=== PATIENT | male | born 2000 | race Caucasian/White ===

== ENCOUNTER 2025-02-02 18:25 | Emergency (ER) | payer SELFPAY ==
--- NOTE | ~2025-02-02 | XR_ITS ---
CLINICAL HISTORY: sob 2 view chest x-ray Comparison: None Findings: There is increased opacity in the retrocardiac left lower lobe. No effusion or pneumothorax. Normal size heart. No acute fracture. IMPRESSION: Left lower lobe medial opacity which may be atelectasis or infection. This document has been electronically signed by: Nato Zeng MD on 02/02/2025 23:47:09
[2025-02-02 18:45] VITALS: BP 130/95; PULSE 104; RESP 18; TEMP 36.7; O2SAT 95; BMI 26.0
--- NOTE | 2025-02-02 18:47 | ED.GENADULT ---
HPI - General Adult General Chief complaint: Asthma Stated complaint: difficulty breathing, vomiting Time Seen by Provider: 02/02/25 21:22 Source: patient Mode of arrival: ambulatory Limitations: no limitations History of Present Illness ED Provider: tip fishman np HPI narrative: Patient is a 24-year-old male who presents emergency department for evaluation endorsing asthma exacerbation he has been experiencing cough, dyspnea on exertion, and post-tussive vomiting since yesterday evening. States he does not have assurance at this time therefore has not had his inhaler or nebulizers. He was able to use his sister's nebulizer machine last night which did help his symptoms for a few hours. He denies any known sick contacts. Denies any notable fever but has experienced some chills. Denies headache, dizziness, lightheadedness, history of VTE/malignancy, abdominal pain, nausea, constipation, diarrhea, genitourinary symptoms, numbness or tingling of the extremities. Denies recent lower extremity redness pain swelling. Denies recreational drug or alcohol usage Related Data Previous Rx's ?Medication ?Instructions ?Recorded albuterol sulfate 90 mcg/actuation 2 puff inhalation Q4-6H PRN 02/03/25 aerosol inhaler shortness of breath or wheezing #6.7 grams amoxicillin 500 mg capsule 1,000 mg (2 x 500 mg) PO TID 5 02/03/25 days #30 caps prednisone 20 mg tablet 40 mg (2 x 20 mg) PO DAILY #10 tabs 02/03/25 Allergies Allergy/AdvReac Type Severity Reaction Status Date / Time No Known Allergies Allergy Verified 02/02/25 18:48 Review of Systems Review of Systems: Yes all other systems are reviewed and are negative PMFSH Past Medical History Attestation statement: The following information was validated with the patient. Source: old records reviewed Social History Social History Alcohol intake: current Alcohol intake frequency: holidays/special occasions only Smoked in Last 30 Days: Yes Use of substances other than those prescribed or required for medical reasons: Yes Substance Use Type: Marijuana Advance Directives: No Advance Directives Information Provided: Yes Physical Exam ED Vital Signs: Vital Signs - 24 hr 02/02/25 18:45 02/02/25 21:15 02/02/25 21:36 Temperature 98.0 F 98.7 F Pulse Rate 104 H 89 105 H Respiratory Rate 18 17 28 H Blood Pressure 130/95 H 127/84 Pulse Oximetry 95 93 Oxygen Delivery Method Room Air Room Air 02/02/25 23:19 02/03/25 02:19 Temperature 98.1 F Pulse Rate 197 H 107 H Respiratory Rate 20 20 Blood Pressure 112/58 L Pulse Oximetry 94 Oxygen Delivery Method Room Air BMI result Body Mass Index 26.0 Appearance: Alert.?Oriented to person, place and time. No acute distress.?Normal affect. Eyes: Pupils equal, round and reactive to light.? ENT: Pharynx normal.?? Neck: Normal inspection.? Neck supple.?? CVS: Heart sounds normal. Tachycardia. Pulses normal.?? Respiratory: Increased work of breathing, tachypneic, and strain expiratory wheezing Abdomen: Soft and non-tender. Normoactive bowel sounds. Skin: Skin warm and dry.? Normal skin color.? Extremities: No lower extremity edema.? No calf ttp? Neuro: Moves all extremities spontaneously. Sensation intact bilaterally. No focal neuro deficits. Ambulates with normal steady gait. Course Course Course Narrative: This is a rapid medical exam performed by Carmen Gonzalez NP: Additional HPI, ROS, PE not included below will be deferred to primary provider. Patient is a 24-year-old male with history of asthma presenting with complaint of cough, dyspnea, vomiting since 5pm yesterday. Does not currently have inhaler/nebs as he does not have insurance. Went to his mother's house last night to use his sister's nebulizer, which improved sxs for a few hours then symptoms returned. Plan: viral serology Reevaluation(s) Reevaluation #1: CBC reveals mild leukocytosis of 13,100, no anemia or thrombocytopenia. He is hypokalemic at 2.9 likely secondary to albuterol usage no further electrolyte derangement no medications that would otherwise causes, no evidence of gastrointestinal loss, patient to receive potassium 40 mEq IV and 40 mEq orally. No HILDA. LFTs overall unremarkable. Viral serologies are negative. Group a strep is negative. ECG reveals a sinus tachycardia with ventricular rate of 108, QTC 436, no ST-elevation. CXR revealing left lower lobe pneumonia for which he received Rocephin. Reevaluation #2: Patient is pending repeat chemistries for evaluation of resolution of hypokalemia which again suspect secondary to albuterol usage. Ambulatory O2 trial without hypoxia or distress. Reports phone low enough to return home at this time which I feel is reasonable. I have sent prescriptions for albuterol, prednisone, and amoxicillin to pharmacy strict return precautions. Repeat potassium has normalized. Time: 03:47 Medications Administered Discontinued Medications Generic Name Dose Route Start Last Admin Trade Name Eusebio PRN Reason Stop Dose Admin Albuterol Sulfate 7.5 mg/ 10 mg 02/02/25 23:15 02/02/25 23:19 Albuterol Sulfate 2.5 mg INHALE 02/02/25 23:16 10 mg ONCE ONE Administration Ceftriaxone Sodium 1 gm 02/03/25 00:31 02/03/25 00:46 Ceftriaxone Sodium 1 Gm Vial IVPUSH 02/03/25 00:32 1 gm ONCE ONE Administration Albuterol Sulfate 7.5 mg/ 0 mg 02/02/25 21:35 02/02/25 21:36 Albuterol/Ipratropium 3 ml INHALE 02/02/25 21:36 1 each ONCE ONE Administration Magnesium Sulfate 2 gm in 50 mls @ 25 mls/hr 02/02/25 21:32 02/03/25 00:19 Magnesium Sulfate/H2o IV 02/02/25 23:31 Infused ONCE ONE Infusion Potassium Chloride 10 meq in 100 mls @ 100 mls/hr 02/02/25 22:30 02/03/25 03:14 Potassium Chloride/H20 IV 02/03/25 02:29 Infused Q1H MELANIE Infusion Sodium Chloride 1,000 mls @ 999 mls/hr 02/02/25 22:45 02/03/25 02:48 Ns IV 02/02/25 23:45 Infused .Q1H1M MELANIE Infusion Methylprednisolone Sodium Succinate 125 mg 02/02/25 21:32 02/02/25 21:59 Methylprednisolone Sod Succ 125 Mg/2 Ml Vial IVPUSH 02/02/25 21:33 125 mg ONCE ONE Administration Potassium Chloride 40 meq 02/02/25 22:28 02/02/25 22:41 Potassium Chloride Packet 20 Meq Packet PO 02/02/25 22:29 40 meq ONCE ONE Administration Medical Decision Making Medical Decision Making MDM Narrative: Patient is a 24 old male with past medical history of asthma who presents emergency department expressing concern for an asthma exacerbation as per HPI, he admits in the past what at age 11 he was hospitalized in the ICU due to is asthma, is not certain whether he required intubation in the past. He has not had his albuterol nebulizer or inhaler for quite some time due to lack of insurance. He denies any known sick contact. On arrival to emergency department at increased work of breathing, tachypnea, mild accessory muscle usage and inspiratory and expiratory wheezing. He received albuterol 10 mg nebulizer promptly, magnesium 2 g IV, Solu-Medrol 125 mg IV, pending serum labs, chest x-ray, viral serologies. No rash or lesions, urticaria, or evidence of angioedema to suggest allergic reaction/anaphylaxis. No swallowing difficulties to suggest aspiration. No associated chest pain, lower extremity redness pain or swelling, history of VTE/malignancy to suggest ACS. CHF, pericardial effusion, or pulmonary embolism. No palpitations or history of known arrhythmias. No recent trauma or injury, no tracheal deviation, unlikely tension pneumothorax. No history of diabetes, unlikely DKA. No acute bleeding or known anemia, no associated dizziness fatigue or chest pain to suggest acute anemia. Differential Diagnosis Differential Diagnoses: The differential diagnosis associated with the presentation includes (See narrative above) Admission/Observation Consideration of admission/observation: Escalation of care including admission/observation considered Lab Data MDM Lab Attestation statement: I reviewed the patient's lab results. (See course narrative) 02/02/25 21:57 02/03/25 03:17 Labs: Lab Results 02/02/25 02/02/25 02/02/25 Range/Units 19:14 21:57 21:59 WBC 13.1 H (4.8-10.8) X10*3/uL RBC 5.58 (4.60-5.80) X10*6/uL Hgb 16.5 (14.0-18.0) g/dl Hct 46.5 (42.0-52.0) % MCV 83.3 (80.0-98.0) fL MCH 29.6 (27.0-33.0) pg MCHC 35.5 (31.0-36.0) g/dl RDW 12.4 (11.0-16.0) % Plt Count 381 (160-400) X10*3/uL MPV 10.2 (9.4-12.4) fL Immature Gran % (Auto) 0.3 (0.0-0.4) % Neut % (Auto) 60.7 (45-73) % Lymph % (Auto) 23.8 (20-40) % [place] % (Auto) 13.3 H (2-11) % Eos % (Auto) 1.4 (0-4) % Baso % (Auto) 0.5 (0-2) % Lymph # (Auto) 3.1 (1.2-4.9) X10*3/uL [place] # (Auto) 1.7 H (0.1-1.2) X10*3/uL Eos # (Auto) 0.2 (0.0-0.4) X10*3/uL Baso # (Auto) 0.1 (0.0-0.2) X10*3/uL Abs Immat Gran (auto) 0.04 H (0.00-0.03) X10*3/uL Absolute Neuts (auto) 8.0 (2.0-8.3) x10*3/uL Absolute Nucleated RBC 0.000 (0.0-0.012) X10*3/uL Nucleated RBC % (auto) 0.0 (0.0-0.2) /100WBC Smear Tech's Comments VERIFIED Sodium 139 (135-145) mmol/L Potassium 2.9 L* (3.3-5.1) mmol/L Chloride 101 (96-108) mmol/L Carbon Dioxide 22 (22-29) mmol/L Anion Gap 19 (12-20) BUN 13 (9-16) mg/dL Creatinine 0.86 (0.5-1.4) mg/dL Estim Creat Clear Calc 128.1 Estimated GFR > 60 Random Glucose 149 H (60-115) mg/dL Calcium 9.7 (8.4-10.2) mg/dL Magnesium 2.1 (1.6-2.6) mg/dL Total Bilirubin 1.3 H (0.0-1.0) mg/dL AST 22 (5-37) U/L ALT 7 (0-40) U/L Alkaline Phosphatase 75 (39-117) U/L Total Protein 8.1 H (6.5-8.0) g/dL Albumin 4.9 (3.5-5.0) g/dL Influenza Type A (PCR) NEGATIVE (Negative) Influenza Type B (PCR) NEGATIVE (Negative) RSV RNA Qual (PCR) NEGATIVE (Negative) SARS-CoV-2 RNA (RT-PCR) NEGATIVE (Negative) S. pyogenes GrpA JESSICA Negative (Negative) 02/03/25 Range/Units 03:17 WBC (4.8-10.8) X10*3/uL RBC (4.60-5.80) X10*6/uL Hgb (14.0-18.0) g/dl Hct (42.0-52.0) % MCV (80.0-98.0) fL MCH (27.0-33.0) pg MCHC (31.0-36.0) g/dl RDW (11.0-16.0) % Plt Count (160-400) X10*3/uL MPV (9.4-12.4) fL Immature Gran % (Auto) (0.0-0.4) % Neut % (Auto) (45-73) % Lymph % (Auto) (20-40) % [place] % (Auto) (2-11) % Eos % (Auto) (0-4) % Baso % (Auto) (0-2) % Lymph # (Auto) (1.2-4.9) X10*3/uL [place] # (Auto) (0.1-1.2) X10*3/uL Eos # (Auto) (0.0-0.4) X10*3/uL Baso # (Auto) (0.0-0.2) X10*3/uL Abs Immat Gran (auto) (0.00-0.03) X10*3/uL Absolute Neuts (auto) (2.0-8.3) x10*3/uL Absolute Nucleated RBC (0.0-0.012) X10*3/uL Nucleated RBC % (auto) (0.0-0.2) /100WBC Smear Tech's Comments Sodium 138 (135-145) mmol/L Potassium 3.7 D (3.3-5.1) mmol/L Chloride 104 (96-108) mmol/L Carbon Dioxide 15 L (22-29) mmol/L Anion Gap 23 H (12-20) BUN 12 (9-16) mg/dL Creatinine 0.89 (0.5-1.4) mg/dL Estim Creat Clear Calc 123.8 Estimated GFR > 60 Random Glucose 215 H (60-115) mg/dL Calcium 9.1 D (8.4-10.2) mg/dL Magnesium (1.6-2.6) mg/dL Total Bilirubin (0.0-1.0) mg/dL AST (5-37) U/L ALT (0-40) U/L Alkaline Phosphatase (39-117) U/L Total Protein (6.5-8.0) g/dL Albumin (3.5-5.0) g/dL Influenza Type A (PCR) (Negative) Influenza Type B (PCR) (Negative) RSV RNA Qual (PCR) (Negative) SARS-CoV-2 RNA (RT-PCR) (Negative) S. pyogenes GrpA JESSICA (Negative) Independent Interpretation I performed an independent interpretation of an: EKG (See course narrative) Radiology Impression Discussion of test interpretation with radiology: I have reviewed the radiologist's reading. Radiologist Impression: 2 view chest x-ray Comparison: None Findings: There is increased opacity in the retrocardiac left lower lobe. No effusion or pneumothorax. Normal size heart. No acute fracture. IMPRESSION: Left lower lobe medial opacity which may be atelectasis or infection. Independent Historian Clinical information obtained from an independent historian. History obtained from or confirmed by: Spouse External Record Review External record reviewed: Outpatient record Chronic Conditions Patient?s care impacted by: Other (See narrative above) Critical Care Time Critical Care Time Critical Care Time: Yes Total Critical Care Time: 40 Attestation: I personally attest to this critical care time spent taking care of the patient exclusive of all other billable procedures was approximately 4 minutes including initial evaluation of patient, ordering tests, x-ray interpretation, EKG interpretation, IV electrolyte replacement and re-evaluation, medical consultation, documentation, re-evaluation. Discharge Plan Discharge Clinical Impression: Pneumonia, Asthma with acute exacerbation Patient Disposition: Home, Self-Care Instructions: Asthma (ED), Pneumonia (ED) Additional Instructions: You were treated in the emergency department today for asthma exacerbation she was found to be due to pneumonia in your left lung. Prescription for prednisone has been sent to the pharmacy, begin taking this tomorrow evening with food to prevent stomach upset. You may begin course of antibiotic in the morning complete the entire course not skipped any doses or stop taking early even if you begin to feel better. Albuterol inhaler has been sent to your pharmacy as well. Your potassium was low in the emergency department after receiving albuterol, this can be a side effect from the albuterol medication. This was replaced by IV as well as oral potassium and was rechecked before discharge. Return to emergency department any new or worsening symptoms or concerns. Prescriptions: New prednisone 20 mg tablet 40 mg PO DAILY Qty: 10 0RF albuterol sulfate 90 mcg/actuation HFA aerosol inhaler 2 puff inhalation Q4-6H PRN (Reason: shortness of breath or wheezing) Qty: 6.7 0RF amoxicillin 500 mg capsule 1,000 mg PO TID 5 Days Qty: 30 0RF Referrals: Physician,None [Primary Care Provider] - Print Language: Kinyarwanda
[2025-02-02 19:57] LABS: Influenza A PCR NEGATIVE (Negative); Influenza B PCR NEGATIVE (Negative); Resp Syncy Virus RNA Qual PCR NEGATIVE (Negative); SARS COV2 PCR INHOUSE NEGATIVE (Negative)
[2025-02-02 21:15] VITALS: BP 127/84; PULSE 89; RESP 17; TEMP 37.1; O2SAT 93
[2025-02-02 21:36] VITALS: PULSE 105; RESP 28; O2SAT 96
[2025-02-02] MEDS: Albuterol Sulfate 7.5 MG, Albuterol/Iprat 2.5/0.5MG 3 ML 3 ML INHALE (21:36)
[2025-02-02] MEDS: methylPREDNISolone Sod Succ 125 MG/2 ML VIAL IVPUSH (21:59)
[2025-02-02] MEDS: Magnesium Sulfate/H2O 2 GM/50 ML PIGGYBACK IV (22:03)
[2025-02-02 22:08] LABS: Basophils Absolute Auto 0.1 X10*3/uL (0.0-0.2); Basophils Percent Auto 0.5 % (0-2); Eosinophils Absolute Auto 0.2 X10*3/uL (0.0-0.4); Eosinophils Percent Auto 1.4 % (0-4); Hematocrit 46.5 % (42.0-52.0); Hemoglobin 16.5 g/dl (14.0-18.0); Imm Gran Abs Auto 0.04 X10*3/uL (0.00-0.03); Imm Gran Pct Auto 0.3 % (0.0-0.4); Lymphocytes Absolute Auto 3.1 X10*3/uL (1.2-4.9); Lymphocytes Percent Auto 23.8 % (20-40); MANUAL DIFF FLAG SCAN; Mean Corpuscular HGB Conc 35.5 g/dl (31.0-36.0); Mean Corpuscular Hemoglobin 29.6 pg (27.0-33.0); Mean Corpuscular Volume 83.3 fL (80.0-98.0); Mean Platelet Volume 10.2 fL (9.4-12.4); Monocytes Absolute Auto 1.7 X10*3/uL (0.1-1.2); Monocytes Percent Auto 13.3 % (2-11); Neutrophils Percent Auto 60.7 % (45-73); Platelet Count 381 X10*3/uL (160-400); Red Blood Count 5.58 X10*6/uL (4.60-5.80); Red Cell Distribution Width 12.4 % (11.0-16.0); SCAN SMEAR FLAG 1; White Blood Count 13.1 X10*3/uL (4.8-10.8)
[2025-02-02 22:27] LABS: Alanine Aminotransferase 7 U/L (0-40); Albumin Level 4.9 g/dL (3.5-5.0); Alkaline Phosphatase 75 U/L (39-117); Anion Gap 19 (12-20); Aspartate Amino Transferase 22 U/L (5-37); Bilirubin Total 1.3 mg/dL (0.0-1.0); Blood Urea Nitrogen 13 mg/dL (9-16); Calcium 9.7 mg/dL (8.4-10.2); Carbon Dioxide 22 mmol/L (22-29); Chloride 101 mmol/L (96-108); Creatinine Clr Calc Pharmacy 128.1; Estimated Glomerular Filt Rate > 60; Glucose Random 149 mg/dL (60-115); Magnesium 2.1 mg/dL (1.6-2.6); Potassium 2.9 mmol/L (3.3-5.1); Sodium 139 mmol/L (135-145); Total Protein 8.1 g/dL (6.5-8.0)
--- NOTE | 2025-02-02 22:30 | ECG_ITS ---
Test Reason : HYPOKALEMIA Blood Pressure : */* mmHG Vent. Rate : 108 BPM Atrial Rate : 108 BPM P-R Int : 130 ms QRS Dur : 96 ms QT Int : 326 ms P-R-T Axes : 69 101 41 degrees QTcB Int : 436 ms Sinus tachycardia Rightward axis Borderline ECG No previous ECGs available Referred By: Magalie Fisher Electronically Signed By: ALBINO RODRIGUEZ
[2025-02-02 22:41] LABS: IDNOW Serial# 55D5AD1C
[2025-02-02 22:41] LABS: SLIDE REVIEW VERIFIED
[2025-02-02] MEDS: Potassium Chloride Packet 20 MEQ PACKET 40 MEQ PO (22:41)
[2025-02-02 22:42] LABS: Strep A Nucleic Acid Negative (Negative)
[2025-02-02] MEDS: Potassium Chloride/H20 10 MEQ/100 ML PIGGYBACK 100 MEQ IV ×2 (22:46→23:34)
[2025-02-02] MEDS: 0.9 % Sodium Chloride 1,000 ML 999 ML IV (22:47)
[2025-02-02 23:19] VITALS: PULSE 197; RESP 20; O2SAT 95
[2025-02-02] MEDS: Albuterol Sulfate 7.5 MG, Albuterol Sulfate (0.083%) 2.5 MG 10 MG INHALE (23:19)
[2025-02-03] MEDS: Potassium Chloride/H20 10 MEQ/100 ML PIGGYBACK 100 MEQ IV ×2 (00:46→01:51)
[2025-02-03] MEDS: cefTRIAXone sodium 1 GM VIAL IVPUSH (00:46)
--- NOTE | 2025-02-03 01:05 | PC.NURSE ---
per Gene INHALATION THERAPY AIDE no blood cultures necessary prior to ceftriaxone administration
[2025-02-03 02:19] VITALS: BP 112/58; PULSE 107; RESP 20; TEMP 36.7; O2SAT 94
[2025-02-03 03:40] LABS: Anion Gap 23 (12-20); Blood Urea Nitrogen 12 mg/dL (9-16); Calcium 9.1 mg/dL (8.4-10.2); Carbon Dioxide 15 mmol/L (22-29); Chloride 104 mmol/L (96-108); Creatinine Clr Calc Pharmacy 123.8; Estimated Glomerular Filt Rate > 60; Glucose Random 215 mg/dL (60-115); Potassium 3.7 mmol/L (3.3-5.1); Sodium 138 mmol/L (135-145)
[2025-02-03 04:00] VITALS: BP 130/73; PULSE 101; RESP 18; TEMP 36.6; O2SAT 95
[2025-02-03 04:04] VITALS: BP 130/73; PULSE 101; RESP 18; TEMP 36.6; O2SAT 95
--- NOTE | 2025-02-03 04:43 | PC.NURSE ---
ambulation trial with SpO2 monitoring performed, Pt maintained SpO2 at 93% and above.
== END 2025-02-03 04:10 | disposition home or self-care (01) ==
PROVIDERS: Nurse Practitioner Family; Registered Nurse Emergency; Emergency Provider Emergency Medicine Emergency Medical Services
DX: J18.9 Pneumonia, unspecified organism (principal); R06.02 Shortness of breath; R00.0 Tachycardia, unspecified; E87.6 Hypokalemia; R11.2 Nausea with vomiting, unspecified; J45.901 Unspecified asthma with (acute) exacerbation; Z03.818 Encounter for observation for suspected exposure to other biological agents ruled out; Z79.899 Other long term (current) drug therapy
CPT/HCPCS: 0241U; 36415; 71046; 80048; 80053; 83735; 85025; 87651; 93005; 94640; 96365; 96366; 96367; 96375; 99285; J0696; J2919; J3475; J3480

== ENCOUNTER → 2025-02-02 21:22 | Outpatient (BNV) | payer SELFPAY | PROVIDERS: Emergency Provider Emergency Medicine Emergency Medical Services; Visit Provider Radiology Diagnostic Radiology | DX: R91.8 Other nonspecific abnormal finding of lung field (principal) | CPT/HCPCS: 71046 ==

== ENCOUNTER → 2025-02-02 22:30 | Outpatient (BNV) | payer SELFPAY | PROVIDERS: Emergency Provider Emergency Medicine Emergency Medical Services; Visit Provider Internal Medicine | DX: R00.0 Tachycardia, unspecified (principal) | CPT/HCPCS: 93010 ==